=== PATIENT | female | born 1970 | race Caucasian/White ===

== ENCOUNTER 2023-01-26 14:38 | Emergency (ER) | payer BC ==
[~2023-01-26] VITALS: Ht 167.6 cm; Wt 63.5 kg
[2023-01-26 16:05] LABS: BILIRUBIN Negative (Negative); BLOOD 1+ (Negative); CLARITY Turbid (Clear); COLOR Yellow (Yellow); GLUCOSE Negative (Negative); KETONE Negative (Negative); LEUKO ESTERASE 3+ (Negative); NITRITE Positive (Negative); PH 7.5 (4.5-8.0); SPECIFIC GRAVITY 1.015 (1.001-1.030)
[2023-01-26 16:17] LABS: BACTERIA 3+; WBC TNTC wbc/hpf (0-5)
[2023-01-26 16:38] LABS: BASO % 0.4 % (0.0-1.0); EOS # 0.1 10*3/uL (0.0-0.4); EOS % 1.2 % (1.0-4.0); HEMATOCRIT 41.9 % (37.0-47.0); LYMPH # 1.5 10*3/uL (1.3-4.4); LYMPH % 13.7 % (27.0-41.0); MEAN CELL VOLUME 90.1 fl (81.0-99.0); MEAN CORPUSCULAR HGB CONC 32.2 g/dl (33.0-37.0); NEUT % 75.4 % (47.0-73.0); PLATELET COUNT AUTOMATED 212 10*3/uL (130-400); RED BLOOD COUNT 4.65 10*6/uL (4.10-5.10); RED CELL DISTRI WIDTH 11.9 % (0-14.5); WHITE BLOOD COUNT 10.6 10*3/uL (4.8-10.8)
[2023-01-26] MEDS ORDERED: MACROBID100 M1 PO (16:43)
[2023-01-26 17:04] LABS: ALKALINE PHOSPHATASE 108 U/L (46-116); BUN 12 mg/dl (9-23); CHLORIDE 108 mmol/L (98-107); POTASSIUM 4.2 mmol/L (3.4-5.1); SGPT/ALT 9 U/L (5-49); TOTAL PROTEIN 6.5 gm/dL (6.0-8.0)
[2023-01-26] MEDS ORDERED: ONDANSETRON4 MG SL (19:49)
[2023-01-26] MEDS ORDERED: HYDROCODONE-AC1 EACH PO (19:49)
[2023-01-26] MEDS ORDERED: FLOMAX0.4 MG PO (19:49)
== END 2023-01-26 20:18 | disposition home or self-care (01) ==
LOC: ED 14:38
PROVIDERS: Nurse Practitioner Family
DX: N39.0 Urinary tract infection, site not specified (principal); N20.0 Calculus of kidney; R50.9 Fever, unspecified; Z90.49 Acquired absence of other specified parts of digestive tract